=== PATIENT | male | born 1980 | race Caucasian/White ===

== ENCOUNTER 2023-12-21 12:02 | Emergency (ER) | payer OTHER, SELFPAY ==
[2023-12-21 12:03] VITALS: BP 164/107; PULSE 99; RESP 15; TEMP 36.8; O2SAT 96; BMI 28.1
--- NOTE | 2023-12-21 12:45 | CT_ITS ---
STUDY: CT CERVICAL SPINE WITHOUT CONTRAST REASON FOR EXAM: Male, 43 years old. Trauma RADIATION DOSAGE (If Supplied By Facility): CTDIvol = ( 21.87 ) mGy, DLP = ( 490.32 ) mGycm TECHNIQUE: High resolution transaxial imaging was performed without contrast material. Sagittal and coronal images were reconstructed. Individualized dose optimization techniques were used for this CT. COMPARISON: None FINDINGS: Normal craniovertebral junction. Normal anterior atlantoaxial articulation. Normal odontoid process. Partial opacification of the right mastoid air cells. There is straightening of the normal cervical lordosis. Normal vertebral bodies and posterior osseous elements. C2-3: Normal endplates. Normal disc height and morphology. Normal central canal and intervertebral neuroforamina. C3-4: Normal endplates. Normal disc height and morphology. Normal central canal and intervertebral neuroforamina. C4-5: Normal endplates. Normal disc height and morphology. Normal central canal and intervertebral neuroforamina. C5-6: Normal endplates. Normal disc height and morphology. Normal central canal and intervertebral neuroforamina. C6-7: Normal endplates. Normal disc height and morphology. Normal central canal and intervertebral neuroforamina. C7-T1: Normal endplates. Normal disc height and morphology. Normal central canal and intervertebral neuroforamina. Normal visualized soft tissue structures. CT/Spine Cervical without Contras IMPRESSION: Normal unenhanced CT examination of the cervical spine. Partial opacification of the right mastoid air cells. Electronically Signed: Stanley Rogers MD at 13:17 EST ,
--- NOTE | 2023-12-21 12:45 | CT_ITS ---
STUDY: CT BRAIN WITHOUT CONTRAST REASON FOR EXAM: Male, 43 years old. Trauma. 10 foot fall. Head injury. RADIATION DOSAGE (If Supplied By Facility): CTDIvol = ( 44.99 ) mGy, DLP = ( 829.85 ) mGycm TECHNIQUE: Transaxial CT imaging of the brain was performed without administration of intravenous contrast material. Individualized dose optimization techniques were used for this CT. COMPARISON: No relevant priors. FINDINGS: Normal soft tissue structures. Normal calvarium. Normal size ventricles and extra-axial spaces for the patient''s age. There is evidence of intraparenchymal hematomas in the right temporal lobe as well as in the superior medial aspect of the right frontal lobe. Normal basal ganglia and thalami. Normal brainstem. Normal cerebellum. I also suspect a small subdural hematoma of the cerebral falx. There are no findings of an acute ischemic infarction. Mild mucosal thickening of the maxillary sinuses bilaterally. CT/Brain/Head without Contrast IMPRESSION: Intracerebral hematoma involving the right temporal lobe as well as the superior medial aspect of the right frontal lobe. Minimal surrounding edema. I also suspect a small subdural hematoma involving the anterior aspect of the cerebral falx N.B. : The above Results were Read Back by Stanley Rogers MD to Roge Del Real MD, and understanding confirmed on 12/21/2023 13:13:21 (ET). Electronically Signed: Stanley Rogers MD at 13:14 EST ,
--- NOTE | 2023-12-21 12:46 | EDS_ITS ---
HPI HPI - Fall History of Present Illness Chief Complaint: Fall Narrative Narrative: 43-year-old male who denies significant past medical history presents via EMS with fall off a ladder. He was working on a ladder and was approximately 10 feet high when the ladder kicked out from underneath him and he fell onto concrete. He fell mainly on his right side and hit the back of his head. There was reported loss of consciousness by his gerardo for approximately 1 to 2 minutes. Patient complains of a headache and pain on his occiput. He also complains of right sided neck pain as well as right sided hip and buttocks pain. While he came to, his boss did not allow him to stand up or get up and although he felt that he might be able to. PFSH PFSH Allergy/AdvReac Type Severity Reaction Status Date / Time No Known Allergies Allergy Verified 12/21/23 13:51 Social History Smoking Status: Never smoker ROS ROS ED ROS Narrative Constitutional: No fever, no chills. HEENT: No sore throat. Right sided neck pain. No loss of vision. No rhinorrhea. Cardiovascular: No chest pain. No palpitations. No pedal edema. Respiratory: No cough, no shortness of breath. Abdominal: No abdominal pain. No nausea. No vomiting. Genitourinary: No dysuria. No hematuria. Musculoskeletal: No myalgias. Right hip pain. Right buttocks pain. Neurologic: Positive posterior headaches. No dizziness. No lightheadedness. Skin: No rash. No change in color. Psychiatric: No depression. No anxiety. EXAM Physical Exam Narrative Exam Narrative: GCS 15. ABCs are intact. HEENT examination shows abrasion to the occiput without active bleeding. Mild tenderness and underlying hematoma but no crepitance. Neck is soft and supple without vertebral point tenderness or bony step-off, mild right tenderness to palpation in the paraspinal musculature. Patient is currently in a c-collar. Cardiovascular examination reveals a regular rate and rhythm, no chest tenderness or crepitance. Abdomen soft nontender with normal active bowel sounds. Musculoskeletal examination reveals bilateral radial pulses that are equal and pelvis is stable with mild tenderness palpation in the posterior right hip. No pain with logrolling of femur. Neurovascular intact distally with EHL intact bilaterally. Palpable dorsalis pedis pulses bilaterally. Able to raise legs off bed without difficulty. Const Vital Signs: 12/21/23 12:03 12/21/23 12:08 12/21/23 13:03 Temperature 98.3 F Temperature Source Oral Pulse Rate 99 82 Respiratory Rate 15 19 H Respiratory Effort Normal Respiratory Depth Normal Blood Pressure 164/107 H 139/92 H Blood Pressure Mean 126 107 Pulse Ox 96 100 Oxygen Delivery Method Room Air Room Air 12/21/23 13:45 12/21/23 14:00 12/21/23 14:43 Temperature 97.8 F Temperature Source Pulse Rate 81 88 Respiratory Rate 18 23 H Respiratory Effort Respiratory Depth Blood Pressure 142/90 H 138/83 H Blood Pressure Mean 107 101 Pulse Ox 100 100 Oxygen Delivery Method Room Air Room Air MDM MDM MDM Narrative Medical decision making narrative: Differential diagnosis includes but not limited to scalp hematoma versus intracranial hemorrhage, traumatic versus skull fracture versus cervical spine fracture versus neck/cervical strain. I have low suspicion for right hip fracture based on his history and physical. Imaging will be obtained of the brain and C-spine as well as x-rays of the hip and pelvis. I received a call from the radiologist regarding the CT of the brain. There is intracerebral hematoma in the right temporal area as well as the superior medial aspect of the right frontal lobe. There is suspicion for subdural involving the anterior cerebral falx. I reviewed the radiology report of the CT of the C- spine and there is no evidence of an acute fracture. X-rays of the right hip and pelvis interpreted by myself independently shows no evidence of acute fracture or dislocation. I reviewed the radiology report which confirms my independent interpretation. Given his intracranial hemorrhage, I discussed the patient with his , and they prefer transfer to [facility]. I then discussed patient with Dr. Young who is excepted him in transfer. Of note, patient and family refuse transfer via critical care helicopter, even after emergent transfer was indicated. I did order baseline trauma laboratories including CBC coagulation studies and basic metabolic panel as well as ethyl alcohol which I reviewed and are grossly normal. Disposition is transferred in stable condition. History & Record Review Discussion w/independent historian: Patient and Family Lab Data Attestation: I reviewed the patient's lab results. Labs: Laboratory Results - last 24 hr 12/21/23 12:05 WBC 9.7 RBC 4.74 Hgb 14.3 Hct 41.9 MCV 88.4 MCH 30.2 MCHC 34.1 RDW Std Deviation 42.3 RDW Coeff of Faith 13.0 Plt Count 264 MPV 9.4 Immature Gran % (Auto) 0.500 Neut % (Auto) 62.5 Lymph % (Auto) 25.4 [place] % (Auto) 10.0 Eos % (Auto) 1.3 Baso % (Auto) 0.3 Absolute Neuts (auto) 6.1 Absolute Lymphs (auto) 2.46 Nucleated RBC % 0 PT 13.7 INR 1.1 APTT 23.6 L Sodium 139 Potassium 3.4 L Chloride 104 Carbon Dioxide 29.0 Anion Gap 6 BUN 23 H Creatinine 0.99 Estim Creat Clear Calc 106.94 Est GFR (MDRD) Af Amer 105 Est GFR (MDRD) Non-Af 87 BUN/Creatinine Ratio 23.2 H Glucose 102 Calcium 8.6 Ethyl Alcohol 4.0 Radiography Diagnostic Testing: Clinical Impression(s) from Imaging Studies Brain CT 12/21/23 12:45 IMPRESSION: Intracerebral hematoma involving the right temporal lobe as well as the superior medial aspect of the right frontal lobe. Minimal surrounding edema. I also suspect a small subdural hematoma involving the anterior aspect of the cerebral falx N.B. : The above Results were Read Back by Stanley Rogers MD to Roge Del Real MD, and understanding confirmed on 12/21/2023 13:13:21 (ET). Electronically Signed: Stanley Rogers MD at 13:14 EST , ADDENDUM: 12/21/23 1321 IMPRESSION: Intracerebral hematoma involving the right temporal lobe as well as the superior medial aspect of the right frontal lobe. Minimal surrounding edema. I also suspect a small subdural hematoma involving the anterior aspect of the cerebral falx N.B. : The above Results were Read Back by Stanley Rogers MD to Roge Del Real MD, and understanding confirmed on 12/21/2023 13:13:21 (ET). Electronically Signed: Stanley Rogers MD at 13:14 EST , ADDENDUM: 12/21/23 1336 IMPRESSION: undefined Cervical Spine CT 12/21/23 12:45 IMPRESSION: Normal unenhanced CT examination of the cervical spine. Partial opacification of the right mastoid air cells. Electronically Signed: Stanley Rogers MD at 13:17 EST , Hip/Pelvis X-Ray 12/21/23 13:00 IMPRESSION: Normal x-ray examination of the pelvis and hip. Electronically Signed: Stanley Rogers MD at 13:27 EST , Management Discussion w/another healthcare provider: Vacuum Applicator Operator and Radiologist Critical Care Time Critical Care Time: Yes Critical care time (excluding procedures): 30-74 minutes (31 minutes), Including time spent:, Discussing w/Patient &/or Family/Gear Room Keeper, Discussing w/Consultants, Arranging Admission or Transfer and Performing Direct Patient Care at Bedside Discharge Plan Triage Chief Complaint: Fall ED Provider: Roge Del Real Dx/Rx/DC Orders Primary Care Provider: Heydi Nobles NP Referrals: Heydi Nobles NP, BUMP GRADER OPERATOR-C [Primary Care Provider] - Print Language: [place]i Disposition Disposition: Acute Care Hospital Discharge Location: [facility] Discharge Date/Time: 12/21/23 15:06
--- NOTE | 2023-12-21 13:00 | RAD_ITS ---
STUDY: X-RAY - PELVIS AND RIGHT HIP REASON FOR EXAM: Male, 43 years old. Trauma TECHNIQUE: 3 views of the pelvis and hip. COMPARISON: None. FINDINGS: There is a non-specific bowel gas pattern. Normal visualized soft tissue structures. Normal bilateral iliac wings, sacroiliac joints and visualized sacrum. Normal bilateral superior and inferior pubic rami. Normal pubic symphysis. Normal bilateral ischial tuberosities. Normal visualized femoral head. Normal acetabulum. Normal hip joint. RAD/HIP, UNI W/ Pelvis 2-3 Views IMPRESSION: Normal x-ray examination of the pelvis and hip. Electronically Signed: Stanley Rogers MD at 13:27 EST ,
[2023-12-21 13:03] VITALS: BP 139/92; PULSE 82; RESP 19; O2SAT 100
[2023-12-21] MEDS: Ondansetron 4 MG/2 ML Vial IV (13:34)
[2023-12-21] MEDS: fentaNYL 100 MCG/2 ML Ampul 25 MCG IV (13:58)
[2023-12-21 14:00] VITALS: BP 142/90; PULSE 81; RESP 18; O2SAT 100
[2023-12-21 14:02] LABS: Absolute Lymphocyte Count 2.46 X10^3/uL (0.83-4.51); Absolute Neutrophil Count 6.1 X10^3/uL (2.0-7.7); Basophil# 0.03 X10^3/uL; Basophil% 0.3 % (0-1); Eosinophil# 0.13 X10^3/uL; Eosinophils% 1.3 % (0-5); Hematocrit 41.9 % (40-54); Hemoglobin 14.3 g/dL (13.0-16.5); Lymphocyte # 2.46 X10^3/ul (0.83-4.51); Lymphocyte % 25.4 % (19-41); Mean Corp Hgb Conc 34.1 g/dL (32-36); Mean Corpuscular Hgb 30.2 pg (27.0-32.0); Mean Corpuscular Volume 88.4 fL (80-94); Mean Platelet Vol. 9.4 fl (6.2-12.0); Monocyte# 0.97 X10^3/uL; NRBC Flagged by Analyzer 0 % (0-5); Neutrophil # 6.05 X10^3/uL (2.7-7.7); Neutrophil % 62.5 % (47-70); Platelet Count 264 K/mm3 (150-450); RBC Distribution Width SD 42.3 fl (35.1-43.9); Red Blood Count 4.74 M/mm3 (4.6-6.2); White Blood Count 9.7 K/mm3 (4.4-11.0)
[2023-12-21 14:10] LABS: International Normalized Ratio 1.1; Prothrombin Time (Protime)PT. 13.7 SECONDS (11.7-14.9)
[2023-12-21 14:11] LABS: Partial Thromboplast Time 23.6 Seconds (24.1-36.2)
[2023-12-21 14:25] LABS: Anion Gap 6 (5-15); BUN 23 mg/dL (7-18); BUN/Creat Ratio 23.2 RATIO (10-20); Calcium,Total 8.6 mg/dL (8.5-10.1); Chloride 104 mmol/L (98-107); Creatinine, Serum 0.99 mg/dL (0.70-1.30); EST Glomerular Filtration Rate 87 mL/min (>60); Est Glom Filt Rate - Afr Amer 105 mL/min (>60); Estimated Creatinine Clearance 106.94 ml/min; Glucose 102 mg/dL (74-106); Potassium 3.4 mmol/L (3.5-5.1); Sodium Level 139 mmol/L (136-145)
[2023-12-21 14:43] VITALS: BP 138/83; PULSE 88; RESP 23; TEMP 36.6; O2SAT 100
== END 2023-12-21 15:06 | disposition short-term general hospital (02) ==
LOC: ED 13:21
PROVIDERS: Emergency Provider Emergency Medicine; PCP Nurse Practitioner Family; Visit Provider Emergency Medicine
DX: S06.361A Traumatic hemorrhage of cerebrum, unspecified, with loss of consciousness of 30 minutes or less, initial encounter (principal); W11.XXXA Fall on and from ladder, initial encounter; Y99.0 Civilian activity done for income or pay
CPT/HCPCS: 70450; 72125; 73502; 80048; 82077; 85025; 85610; 85730; 96374; 96375; 99285; A4216; J2405